=== PATIENT | female | born 1950 | race Asian ===

== ENCOUNTER 2021-01-08 11:56 | Emergency (ER) | payer OTHER ==
[2021-01-08 12:06] VITALS: BP 149/81; PULSE 73; TEMP 97.9; BMI 31.2
[2021-01-08] MEDS ORDERED: CYCLOBENZAPRINE HCL 10 MG TABLET (FP) PO ONE (13:26)
[2021-01-08] MEDS ORDERED: CYCLOBENZAPRINE HCL 10 MG TABLET (FP) ONE (13:48)
== END 2021-01-08 13:52 | disposition home or self-care (01) ==
LOC: JER 11:56
DX: M54.5 Low back pain (principal)
CPT/HCPCS: 72100-TC-FY; 73523-TC-FY; 99284-25